=== PATIENT | male | born 1980 | race African-American/Black ===

== ENCOUNTER 2016-07-12 16:55 | Emergency (ER) | payer MEDICAID, OTHER ==
[~2016-07-12] VITALS: Ht 180.3 cm; Wt 120.0 kg
[~2016-07-12 16:55] MED LIST: PRIL40CA PO; ZANTTAB9 PO
[2016-07-12 16:57] VITALS: BP 156/100; PULSE 100; RESP 14; TEMP 97.8; O2SAT 100
[2016-07-12] MEDS ORDERED: METF850T PO (17:06)
[2016-07-12] MEDS ORDERED: SITA50 PO (17:06)
[2016-07-12] MEDS ORDERED: SITA1TAB2 PO (17:07)
--- NOTE | 2016-07-12 17:39 | PD ---
HPI Chief Complaint: Pain: Acute or Chronic Time Seen by Provider: 17:16 Travel History International Travel<30 days: No Contact w/Intl Traveler<30days: No Traveled to known affect area: No History of Present Illness HPI 36-year-old male with history of type 2 diabetes well controlled on metformin and Januvia presents to the emergency department for evaluation of nontraumatic left foot pain. Patient reports that he developed pain in the left foot plantar aspect today. He denies injury or trauma. He denies possibility of foreign body. He reports the pain developed as he was walking with tennis shoes on. The pain has since subsided. He was urged to come to the emergency department for evaluation by his family because his father had his foot amputated due to diabetic complications. He denies fever or chills, no swelling of the foot, no numbness or tingling in the extremity. PFSH Past Medical History Asthma: Yes Diabetes: Yes Patient Takes Glucophage: Yes (metformin @ 1130) GERD: Yes Hypertension: Yes Immunizations Current: Yes Tetanus Vaccination: < 5 Years Influenza Vaccination: No Social History Alcohol Use: No (OCC) Tobacco Use: Yes (/2 PPD) Substance Use: No Allergies-Medications (Allergen,Severity, Reaction): Coded Allergies: No Known Allergies (Verified , 11/29/11) Reported Meds & Prescriptions Reported Meds & Active Scripts Active Reported Januvia (Sitagliptin Phosphate) 100 Mg Tab 100 Mg PO DAILY Metformin (Metformin HCl) 850 Mg Tab 800 Mg PO BIDPC With meals Review of Systems Except as stated in HPI: all other systems reviewed are Neg Physical Exam Narrative GENERAL: Alert, well-nourished, well-appearing male SKIN: Focused skin assessment warm/dry. HEAD: Atraumatic. Normocephalic. EYES: Pupils equal and round. No scleral icterus. No injection or drainage. ENT: No nasal bleeding or discharge. Mucous membranes pink and moist. NECK: Trachea midline. No JVD. CARDIOVASCULAR: Regular rate and rhythm. No murmur appreciated. RESPIRATORY: No accessory muscle use. Clear to auscultation. Breath sounds equal bilaterally. GASTROINTESTINAL: Abdomen soft, non-tender, nondistended. Hepatic and splenic margins not palpable. MUSCULOSKELETAL: No obvious deformities. No clubbing. No cyanosis. No edema. Left foot: Extremity warm. No edema. No erythema. No wounds. Brisk cap refill. Normal sensation with 2 point discrimination of the extremity. Brisk cap refill. Nontender. NEUROLOGICAL: Awake and alert. No obvious cranial nerve deficits. Motor grossly within normal limits. Normal speech. PSYCHIATRIC: Appropriate mood and affect; insight and judgment normal. Data Data Last Documented VS Vital Signs Date Time Temp Pulse Resp B/P Pulse Ox O2 Delivery O2 Flow Rate FiO2 07/12/16 16:57 97.8 100 14 156/100 100 MDM Medical Decision Making Medical Screen Exam Complete: Yes Emergency Medical Condition: Yes Medical Record Reviewed: Yes Differential Diagnosis Foot pain, plantar fasciitis, diabetic neuropathy, midfoot sprain Narrative Course 36-year-old male presents to the emergency department with nontraumatic left foot pain earlier today which has since subsided. His family was concerned this was a combination of his diabetes and wanted him evaluated. The extremity is atraumatic, there is no sign of infection, he has normal sensation of the foot. Discussed these findings with the patient. He was encouraged to watch the area and return or follow up with his primary doctor if he should develop any increasing pain, redness, swelling. He agrees to plan. Diagnosis Primary Impression: Foot pain, left Referrals: Primary Care Physician Disposition: DISCHARGE HOME Condition: Stable Ligia Stark July 12, 2016 17:39
== END 2016-07-12 18:05 | disposition home or self-care (01) ==
LOC: NEPK 16:55
DX: M79.672 Pain in left foot (principal); E11.9 Type 2 diabetes mellitus without complications; I10 Essential (primary) hypertension; F17.210 Nicotine dependence, cigarettes, uncomplicated; Z79.84 Long term (current) use of oral hypoglycemic drugs
CPT/HCPCS: 99282